=== PATIENT | male | born 1970 ===

== ENCOUNTER 2021-01-02 08:26 | Outpatient (CLI) | payer OTHER ==
--- NOTE | 2021-01-02 09:20 | XRAY Report ---
PROCEDURE: Foot 3 View RT INDICATIONS: RIGHT FOOT PAIN TECHNIQUE: 3 views of the foot were acquired. COMPARISON: None FINDINGS: Bones: No fractures or dislocations. There is an osteochondroma of the medial aspect of the base of the distal phalanx of the great toe. Soft tissues: No tibiotalar joint effusion. Achilles tendon appears normal. IMPRESSION: Osteochondroma of the medial aspect of the base of the great toe. Recommend clinical correlation with physical examination to determine the presence or absence of pain in this location. If this is a gabrielle nful lesion, consider MRI with and without contrast. Reviewed by: Alfa Seymour MD on 01/02/2021 9:19 AM PDT Approved by: Alfa Seymour MD on 01/02/2021 9:19 AM PDT Station ID: [id number]
== END 2021-01-02 08:27 | disposition home or self-care (01) ==
LOC: DI 08:26
PROVIDERS: ATTEND Physician Assistant
DX: D16.31 Benign neoplasm of short bones of right lower limb (principal)